=== PATIENT | male | born 1970 | race Caucasian/White ===

== ENCOUNTER 2017-11-29 08:18 | Emergency (ER) | payer BC | END 2017-11-29 09:01 | disposition home or self-care (01) | LOC: SCSER 08:18 | DX: M54.6 Pain in thoracic spine (principal); X50.0XXA Overexertion from strenuous movement or load, initial encounter | CPT/HCPCS: 99283 ==

== ENCOUNTER 2019-01-30 13:23 | Outpatient (CLI) | payer BC ==
--- NOTE | 2019-01-30 14:49 | RAD ---
PA AND LATERAL CHEST: History: Encounter for general adult medical exam with abnormal findings. FINDINGS: Heart size and mediastinum within normal limits. The lungs are clear of infiltrates. No significant b nick findings. IMPRESSION: No active intrathoracic disease. POS: [facility]
--- NOTE | 2019-01-30 15:11 | RAD ---
AP PELVIS: HISTORY: Back pain and pain radiating down the right hip and leg. FINDINGS: There are some arthritic changes of the lower lumbar spine. The pelvic ring is intact. Joint spaces are fairly well preserved with only minimal osteophytic change. IMPRESSION: No significant joint space narrowing. No evidence of fracture. POS: [facility]
--- NOTE | 2019-01-30 15:20 | RAD ---
LUMBAR SPINE SERIES 2 VIEWS: Date: 01/30/19 HISTORY: Back pain with radicular symptoms. Pain running down right leg. FINDINGS: The vertebral bodies are normal in height. There is partial sacralization of L5. Considering this, th ere is marked disc narrowing and osteophytic change at what is designated as the L4-5 level. This is considering that there are rudimentary 12th ribs. There is also increased disc narrowing to the level above this which is felt to represent L3-4, and more prominent degenerative osteophytes and some dis c narrowing at L2-3. IMPRESSION: Arthritic changes of the spine as discussed above. POS: [facility]
== END 2019-01-30 13:24 | disposition home or self-care (01) ==
LOC: BICRAD 13:23
PROVIDERS: ATTEND Family Medicine
DX: Z00.01 Encounter for general adult medical examination with abnormal findings (principal); M51.16 Intervertebral disc disorders with radiculopathy, lumbar region; M51.27 Other intervertebral disc displacement, lumbosacral region; M46.96 Unspecified inflammatory spondylopathy, lumbar region
CPT/HCPCS: 71046; 72100; 72170

== ENCOUNTER 2021-10-06 10:25 | Outpatient (CLI) | payer BC | END 2021-10-06 10:26 | disposition home or self-care (01) | LOC: TBSIIMAG 10:25 | PROVIDERS: ATTEND Orthopaedic Surgery Sports Medicine | DX: M25.561 Pain in right knee (principal); G89.29 Other chronic pain; S83.241A Other tear of medial meniscus, current injury, right knee, initial encounter; M25.461 Effusion, right knee; M22.2X1 Patellofemoral disorders, right knee ==

== ENCOUNTER 2021-11-21 16:32 | Outpatient (CLI) | payer BC ==
[2021-11-21 17:36] LABS: #Eosinphils 0.2 10x3/uL (0.0-0.5); #Monocytes 0.4 10x3/uL (0.0-1.1); #Neutrophils 7.5 10x3/uL (1.5-8.4); %Basophils 0.3 % (0.0-2.0); %Lymphocytes 23.1 % (18.0-47.0); %Monocytes 3.9 % (0.0-10.0); %Neutrophils 70.3 % (40.0-75.0); Hemoglobin 15.3 g/dL (13.5-17.5); Mean Corpuscular HGB CONC 32.6 g/dL (32.0-36.0); Mean Corpuscular Hemoglobin 29.5 pg (27.0-33.0); Mean Corpuscular Volume 90.5 fl (81.2-95.1); Mean Platelet Volume 10.8 fl (7.4-10.4); Platelet Count 213 10x3/uL (150-450); RBC Distribution Width 13.2 % (11.5-14.5); Red Blood Cell (RBC) Count 5.18 10x6/uL (4.32-5.72); White Blood Cell (WBC) Count 10.6 10x3/uL (3.5-10.5)
[2021-11-21 17:51] LABS: Anion Gap 14 mmol/L (10-20); BUN (Urea Nitrogen) 20 mg/dL (8.9-20.6); Calc. Creatinine Clearance 0 mL/min (70-130); Calcium 9.3 mg/dL (7.8-10.44); Carbon Dioxide 25 mmol/L (22-29); Chloride 107 mmol/L (98-107); Glucose 116 mg/dL (70-105); Potassium 4.5 mmol/L (3.5-5.1); Sodium 141 mmol/L (136-145)
[2021-11-22 18:06] LABS: SARS-CoV-2 PCR by NAA Not Detected (NotDetected)
== END 2021-11-21 16:33 | disposition home or self-care (01) ==
LOC: LABBT 16:32
PROVIDERS: ATTEND Orthopaedic Surgery
DX: Z01.818 Encounter for other preprocedural examination (principal); Z20.822 Contact with and (suspected) exposure to COVID-19
CPT/HCPCS: 80048; 85025; 93005; 93010; U0003; U0005

== ENCOUNTER 2021-11-24 06:03 | Day surgery (SDC) | payer BC ==
[2021-11-21 11:10] VITALS: BMI 37.3
[2021-11-24] MEDS ORDERED: ceFAZolin 2 GM/DEX 5% 100 ML BAG ONE (06:24)
[2021-11-24] MEDS ORDERED: PROPOFOL 0 ML ONE (06:54)
[2021-11-24] MEDS ORDERED: Dexamethasone 20 MG/5 ML VIAL ONE (07:01)
[2021-11-24] MEDS ORDERED: Lidocaine 1% PF 5 ML VIAL ONE (07:01)
[2021-11-24] MEDS ORDERED: Ketorolac Tromethamine 30 MG/ML VIAL ONE (07:01)
[2021-11-24] MEDS ORDERED: Ondansetron PF 4 MG/2 ML Vial ONE (07:01)
[2021-11-24] MEDS ORDERED: PROPOFOL 200 MG/20 ML VIAL ONE (07:01)
[2021-11-24] MEDS ORDERED: Bupivacaine HCl 0.5%/Epinephrine 1:200,000/PF 30 ml Vial ONE (07:01)
[2021-11-24] MEDS ORDERED: Lidocaine 2% w/Epinephrine 1:200K 20 ML VIAL ONE (07:01)
[2021-11-24] MEDS ORDERED: PROPOFOL 20 ML ONE (07:06)
[2021-11-24] MEDS ORDERED: Fentanyl 100 MCG/2 ML VIAL ONE (07:19)
== END 2021-11-24 10:40 | disposition home or self-care (01) ==
LOC: SDC 06:03
PROVIDERS: ATTEND Orthopaedic Surgery
PROC: 0SBC4ZZ Excision of Right Knee Joint, Percutaneous Endoscopic Approach (ICD-10-PCS; principal; 2021-11-24)
DX: S83.231A Complex tear of medial meniscus, current injury, right knee, initial encounter (principal); F17.290 Nicotine dependence, other tobacco product, uncomplicated
CPT/HCPCS: J1100; J1885; J2405; J2704; J3010